=== PATIENT | male | born 1980 | race Caucasian/White ===

== ENCOUNTER 2016-12-28 09:47 | Emergency (ER) | payer OTHER ==
--- NOTE | 2016-12-28 11:07 | ED CLINICAL REPORT ---
Clinical Report - Physicians/Mid Levels [facility] [address] [place] [address] 12/28/2016 9:49 Patient: ALEJANDRO GARCIA Time Seen: 11:01 Dec 28 2016. Arrived- By private vehicle. Historian- patient. CPT: ER phys charges level 3 (#075301). HISTORY OF PRESENT ILLNESS Chief Complaint: LESION and (no insect bite.). (Pt scratched at lesion and skin opened up. Wound rubbibg on clothes and getting worse.). Is still present. It is described as painful. It has been located on the right thigh. A cause has been identified. Similar symptoms previously: None. Recent medical care: Not recently seen/assessed. REVIEW OF SYSTEMS No fever, chills, sore throat, enlarged lymph nodes or abdominal pain. No nausea, genital lesions or joint pain. All systems otherwise negative, except as recorded above. PAST HISTORY ADDITIONAL SURGERIES: Ear. Medications: [place] Oral. OLANZapine Oral. Ibuprofen Oral. Citalopram Hydrobromide Oral. Benzoprine. Allergies: No Known Drug Allergy. SOCIAL HISTORY Smoker- current status unknown (electronic cigarrette). Occasional alcohol use. History of drug use: marijuana. ADDITIONAL NOTES The nursing notes have been reviewed. PHYSICAL EXAM Vital Signs: 12/28/2016 09:57 BP: 138/75. HR: 76. RR: 18. O2 saturation: 97%. Temp: 98.4 F. Pain level now: 5/10. Appearance: Alert. No acute distress. Anxious. Eyes: Pupils equal, round and reactive to light. Conjunctivae and eyelids normal. ENT: Pharynx normal. CVS: Normal heart rate and rhythm. Heart sounds normal. No cardiac murmur. Respiratory: No respiratory distress. Breath sounds normal. Abdomen: Nontender. Skin: Normal skin color. Cellulitis to right thigh. Rash present on the right thigh (skin erosion 3 cm in diameter. NO fluctuance. No sign of penetrating injury.). There is induration and tenderness. Neuro: Oriented X 3. No motor deficit. No sensory deficit. PROGRESS AND PROCEDURES Course of Care: Dressing placed v over wound. Pt sounds like he scratched the skin off when he noticed a small bump in the area. Patient/family counseled. Disposition: Discharged. Condition: stable. CLINICAL IMPRESSION Right posterior thigh erosion with early cellulitis. INSTRUCTIONS Protect wound and keep wound area clean. Change dressing twice daily. Keep wounds dry. You may wash wounds briefly, then dry. Apply neosporin twice daily. Warnings: Further evaluation is necessary. GENERAL WARNINGS: Return or contact your physician immediately if your condition worsens or changes unexpectedly, if not improving as expected, or if other problems arise. Your Current Medications: CONTINUE TAKING THE FOLLOWING MEDICATIONS: Benzoprine*. Citalopram Hydrobromide Oral. Ibuprofen Oral. [place] Oral. OLANZapine Oral. Prescription Medications: Bactrim DS 800 mg / 160 mg: Take 1 tablet orally every 12 hours for 7 days. Dispense fourteen (14). No refills. Substitution is permissible. OTC Medications: Acetaminophen (available over the counter): take according to label instructions. Follow-up: Follow up with your doctor in five days. Call for an appointment. Understanding of the discharge instructions verbalized by patient. (Electronically signed by Pro Hinson MD 12/28/2016 14:28)
--- NOTE | 2016-12-28 11:07 | ED CLINICAL REPORT ---
Clinical Report - Physicians/Mid Levels [facility] [address] [place] [address] 12/28/2016 9:49 Patient: ALEJANDRO GARCIA Time Seen: 11:01 Dec 28 2016. Arrived- By private vehicle. Historian- patient. CPT: ER phys charges level 3 (#416346). HISTORY OF PRESENT ILLNESS Chief Complaint: LESION and (no insect bite.). (Pt scratched at lesion and skin opened up. Wound rubbibg on clothes and getting worse.). Is still present. It is described as painful. It has been located on the right thigh. A cause has been identified. Similar symptoms previously: None. Recent medical care: Not recently seen/assessed. REVIEW OF SYSTEMS No fever, chills, sore throat, enlarged lymph nodes or abdominal pain. No nausea, genital lesions or joint pain. All systems otherwise negative, except as recorded above. PAST HISTORY ADDITIONAL SURGERIES: Ear. Medications: [place] Oral. OLANZapine Oral. Ibuprofen Oral. Citalopram Hydrobromide Oral. Benzoprine. Allergies: No Known Drug Allergy. SOCIAL HISTORY Smoker- current status unknown (electronic cigarrette). Occasional alcohol use. History of drug use: marijuana. ADDITIONAL NOTES The nursing notes have been reviewed. PHYSICAL EXAM Vital Signs: 12/28/2016 09:57 BP: 138/75. HR: 76. RR: 18. O2 saturation: 97%. Temp: 98.4 F. Pain level now: 5/10. Appearance: Alert. No acute distress. Anxious. Eyes: Pupils equal, round and reactive to light. Conjunctivae and eyelids normal. ENT: Pharynx normal. CVS: Normal heart rate and rhythm. Heart sounds normal. No cardiac murmur. Respiratory: No respiratory distress. Breath sounds normal. Abdomen: Nontender. Skin: Normal skin color. Cellulitis to right thigh. Rash present on the right thigh (skin erosion 3 cm in diameter. NO fluctuance. No sign of penetrating injury.). There is induration and tenderness. Neuro: Oriented X 3. No motor deficit. No sensory deficit. PROGRESS AND PROCEDURES Course of Care: Dressing placed v over wound. Pt sounds like he scratched the skin off when he noticed a small bump in the area. Patient/family counseled. Disposition: Discharged. Condition: stable. CLINICAL IMPRESSION Right posterior thigh erosion with early cellulitis. INSTRUCTIONS Protect wound and keep wound area clean. Change dressing twice daily. Keep wounds dry. You may wash wounds briefly, then dry. Apply neosporin twice daily. Warnings: Further evaluation is necessary. GENERAL WARNINGS: Return or contact your physician immediately if your condition worsens or changes unexpectedly, if not improving as expected, or if other problems arise. Your Current Medications: CONTINUE TAKING THE FOLLOWING MEDICATIONS: Benzoprine*. Citalopram Hydrobromide Oral. Ibuprofen Oral. [place] Oral. OLANZapine Oral. Prescription Medications: Bactrim DS 800 mg / 160 mg: Take 1 tablet orally every 12 hours for 7 days. Dispense fourteen (14). No refills. Substitution is permissible. OTC Medications: Acetaminophen (available over the counter): take according to label instructions. Follow-up: Follow up with your doctor in five days. Call for an appointment. Understanding of the discharge instructions verbalized by patient. (Electronically signed by Pro Hinson MD 12/28/2016 14:28)
--- NOTE | 2016-12-28 11:07 | ED ORDER SUMMARY ---
..... Patient: ALEJANDRO GARCIA OrderSheet [facility] VisitID: [id number] [place] [address] 36y, M Registration Date/Time: 12/28/2016 ORDER SHEET Weight: 95.2 kg (stated) Allergies: No Known Drug Allergy GENERAL ORDERS: Dress Wounds (11:12/28/2016 Ly MUELLER) (Ack 11:07 IJurca ER Tech1) (11:29 GMarshall R.N.) MEDICATION ORDERS: Tdap IM 0.5 mL (NOW) (11:12/28/2016 Ly MUELLER) (Ack 11:10 Fidel R.N.) (11:21 Fidel R.N.) IV FLUIDS: ORDER SHEET NOTES: [Electronically signed by Reed Tobias R.N. (11:35 12/28/2016)] [Electronically signed by Pro Hinson MD (14:28 12/28/2016)] [Electronically locked/signed by Reed Tobias R.N. (11:35 12/28/2016)]
--- NOTE | 2016-12-28 11:07 | ED NURSING NOTES ---
Clinical Report - Nurses [place] [facility] [address] [place] [address] 12/28/2016 9:49 Patient: ALEJANDRO GARCIA TRIAGE Triage time 10:05. Acuity: LEVEL 3. Chief Complaint: Location of symptoms- (has a "burn"). Alert. No acute distress. CHRISTOPHER COMA SCORE: [place] Coma Scale: 15- eyes open spontaneously (4); best verbal response- oriented x 4 (5); best motor response- obeys commands (6). --10:12 Yuni Hirsch R.N. 09:57 12/28/16. BP: 138/75. HR: 76. RR: 18. O2 saturation: 97% on room air. Temp: 98.4 F (oral). Pain level now: 12/26. --10:12 Yuni Hirsch R.N. Weight: 95.2 kg stated. Height/Length: 72 inches Per Patient. BMI: 28.5. --10:11 Yuni Hirsch R.N. Medications Benzoprine. --10:07 Yuni Hirsch R.N. Citalopram Hydrobromide Oral. --10:07 Yuni Hirsch R.N. Ibuprofen Oral. --10:08 Yuni Hirsch R.N. OLANZapine Oral. --10:08 Yuni Hirsch R.N. [place] Oral. --10:08 Yuni Hirsch R.N. Medication/allergy information source: the patient. --10:12 Yuni Hirsch R.N. Allergies No Known Drug Allergy. --10:09 Yuni Hirsch R.N. History Arrived by private vehicle. Historian: patient. Unaccompanied. Primary physician (Mahendra). This occurred (about 3 days). SOCIAL HX: Smoker- current status unknown (states he vapes the equivalent of a pack a day). Occasional alcohol use. History of drug use: marijuana. FALL RISK ASSESSMENT: Fall risk assessment completed. No fall risk identified. FUNCTIONAL ASSESSMENT: Functional assessment: no impairments noted. LEARNING NEEDS ASSESSMENT: The learning needs assessment revealed no barriers. --10:12 Yuni Hirsch R.N. PROBLEMS: Chronic pain. Psychosis. Medication Refill. Depression. Previous Psychiatric Treatment. --10:10 Yuni Hirsch R.N. ADDITIONAL SURGERIES: Ear. --10:10 Yuni Hirsch R.N. Assessment GENERAL / NEURO / PSYCH: Alert. Oriented X 4. Appears in no acute distress. Patient appears calm and cooperative. RESPIRATORY: Respirations not labored. SKIN: Skin is warm and dry. --10:12 Yuni Hirsch R.N. Interventions ID band on patient. To treatment room. --10:12 Yuni Hirsch R.N. PHYSICAL ASSESSMENT 10:16 12/28/16. Patient gowned. GENERAL / NEURO / PSYCH: Oriented X 4. Alert. Appears in no acute distress. SKIN: ( on upper right thigh, area red, open, painful). Bruising, blisters and skin tears noted on right buttock. --10:16 Yuni Hirsch R.N. NURSING PROGRESS NOTES 10:16 12/28/16. Patient gowned. Call light placed in reach. Side rails up x 1. Bed placed in lowest position. Brakes of bed on. --10:16 Yuni Hirsch R.N. 11:21 12/28/2016 TDAP IM 0.5 mL given. (Lot#: [id number], expiration date: 05/26/2018, Cotton Bag Clipper: sanofi pasteur). Given in the right deltoid. Allergies verified and confirmed 5 rights. Vaccine information statement provided to the patient. --11:21 Yuni Hirsch R.N. ( bacitracin and 4X4 gauze sponge held intact with tape.). --11:29 Reed Tobias R.N. 11:33 12/28/16. BP: 135/75. HR: 75. RR: 20. O2 saturation: 98%. Temp: 98.1 F. Pain level now 09/28. --11:33 Reed Tobias R.N. DISPOSITION / DISCHARGE Condition at departure: improved. No learning barriers present. Discharge instructions provided and reviewed with the patient. Patient verbalized understanding. Written instructions provided in Luxem[place]ish. The patient was discharged by the physician. He was discharged home. --11:34 Reed Tobias R.N. 11:33 12/28/16. BP: 135/75. HR: 75. RR: 20. O2 saturation: 98%. Temp: 98.1 F. Pain level now 08/28. --11:34 Reed Tobias R.N. Locked/Released at 12/28/2016 11:35 by Reed Tobias R.N.
--- NOTE | 2016-12-28 11:07 | ED ORDER SUMMARY ---
..... Patient: ALEJANDRO GARCIA OrderSheet [facility] VisitID: [id number] [place] [address] 36y, M Registration Date/Time: 12/28/2016 ORDER SHEET Weight: 95.2 kg (stated) Allergies: No Known Drug Allergy GENERAL ORDERS: Dress Wounds (11:12/28/2016 Ly MUELLER) (Ack 11:07 IJurca ER Tech1) (11:29 GMarshall R.N.) MEDICATION ORDERS: Tdap IM 0.5 mL (NOW) (11:12/28/2016 Ly MUELLER) (Ack 11:10 Fidel R.N.) (11:21 Fidel R.N.) IV FLUIDS: ORDER SHEET NOTES: [Electronically signed by Reed Tobias R.N. (11:35 12/28/2016)] [Electronically signed by Pro Hinson MD (14:28 12/28/2016)] [Electronically locked/signed by Reed Tobias R.N. (11:35 12/28/2016)]
--- NOTE | 2016-12-28 11:07 | ED NURSING NOTES ---
Clinical Report - Nurses [place] [address] [place] [address] 12/28/2016 9:49 Patient: ALEJANDRO GARCIA TRIAGE Triage time 10:05. Acuity: LEVEL 3. Chief Complaint: Location of symptoms- (has a "burn"). Alert. No acute distress. CHRISTOPHER COMA SCORE: [place] Coma Scale: 15- eyes open spontaneously (4); best verbal response- oriented x 4 (5); best motor response- obeys commands (6). --10:12 Yuni Hirsch R.N. 09:57 12/28/16. BP: 138/75. HR: 76. RR: 18. O2 saturation: 97% on room air. Temp: 98.4 F (oral). Pain level now: 12/26. --10:12 Yuni Hirsch R.N. Weight: 95.2 kg stated. Height/Length: 72 inches Per Patient. BMI: 28.5. --10:11 Yuni Hirsch R.N. Medications Benzoprine. --10:07 Yuni Hirsch R.N. Citalopram Hydrobromide Oral. --10:07 Yuni Hirsch R.N. Ibuprofen Oral. --10:08 Yuni Hirsch R.N. OLANZapine Oral. --10:08 Yuni Hirsch R.N. [place] Oral. --10:08 Yuni Hirsch R.N. Medication/allergy information source: the patient. --10:12 Yuni Hirsch R.N. Allergies No Known Drug Allergy. --10:09 Yuni Hirsch R.N. History Arrived by private vehicle. Historian: patient. Unaccompanied. Primary physician (Mahendra). This occurred (about 3 days). SOCIAL HX: Smoker- current status unknown (states he vapes the equivalent of a pack a day). Occasional alcohol use. History of drug use: marijuana. FALL RISK ASSESSMENT: Fall risk assessment completed. No fall risk identified. FUNCTIONAL ASSESSMENT: Functional assessment: no impairments noted. LEARNING NEEDS ASSESSMENT: The learning needs assessment revealed no barriers. --10:12 Yuni Hirsch R.N. PROBLEMS: Chronic pain. Psychosis. Medication Refill. Depression. Previous Psychiatric Treatment. --10:10 Yuni Hirsch R.N. ADDITIONAL SURGERIES: Ear. --10:10 Yuni Hirsch R.N. Assessment GENERAL / NEURO / PSYCH: Alert. Oriented X 4. Appears in no acute distress. Patient appears calm and cooperative. RESPIRATORY: Respirations not labored. SKIN: Skin is warm and dry. --10:12 Yuni Hirsch R.N. Interventions ID band on patient. To treatment room. --10:12 Yuni Hirsch R.N. PHYSICAL ASSESSMENT 10:16 12/28/16. Patient gowned. GENERAL / NEURO / PSYCH: Oriented X 4. Alert. Appears in no acute distress. SKIN: ( on upper right thigh, area red, open, painful). Bruising, blisters and skin tears noted on right buttock. --10:16 Yuni Hirsch R.N. NURSING PROGRESS NOTES 10:16 12/28/16. Patient gowned. Call light placed in reach. Side rails up x 1. Bed placed in lowest position. Brakes of bed on. --10:16 Yuni Hirsch R.N. 11:21 12/28/2016 TDAP IM 0.5 mL given. (Lot#: [id number], expiration date: 05/26/2018, Diver Pumper: sanofi pasteur). Given in the right deltoid. Allergies verified and confirmed 5 rights. Vaccine information statement provided to the patient. --11:21 Yuni Hirsch R.N. ( bacitracin and 4X4 gauze sponge held intact with tape.). --11:29 Reed Tobias R.N. 11:33 12/28/16. BP: 135/75. HR: 75. RR: 20. O2 saturation: 98%. Temp: 98.1 F. Pain level now 09/28. --11:33 Reed Tobias R.N. DISPOSITION / DISCHARGE Condition at departure: improved. No learning barriers present. Discharge instructions provided and reviewed with the patient. Patient verbalized understanding. Written instructions provided in [place]. The patient was discharged by the physician. He was discharged home. --11:34 Reed Tobias R.N. 11:33 12/28/16. BP: 135/75. HR: 75. RR: 20. O2 saturation: 98%. Temp: 98.1 F. Pain level now 08/28. --11:34 Reed Tobias R.N. Locked/Released at 12/28/2016 11:35 by Reed Tobias R.N.
--- NOTE | 2016-12-28 14:28 | ED DISCHARGE INSTRUCTIONS ---
Patient: ALEJANDRO GARCIA General Instructions [facility] VisitID: [id number] [place] [address] 36y, M Registration Date/Time: 12/28/2016 Right posterior thigh erosion with early cellulitis. INSTRUCTIONS Protect wound and keep wound area clean. Change dressing twice daily. Keep wounds dry. You may wash wounds briefly, then dry. Apply neosporin twice daily. Warnings: Further evaluation is necessary. GENERAL WARNINGS: Return or contact your physician immediately if your condition worsens or changes unexpectedly, if not improving as expected, or if other problems arise. Your Current Medications: CONTINUE TAKING THE FOLLOWING MEDICATIONS: Benzoprine*. Citalopram Hydrobromide Oral. Ibuprofen Oral. [place] Oral. OLANZapine Oral. Prescription Medications: Bactrim DS 800 mg / 160 mg: Take 1 tablet orally every 12 hours for 7 days. Dispense fourteen (14). No refills. Substitution is permissible. OTC Medications: Acetaminophen (available over the counter): take according to label instructions. Follow-up: Follow up with your doctor in five days. Call for an appointment. Understanding of the discharge instructions verbalized by patient. ADDITIONAL INFORMATION Bandage Change If the bandage becomes wet or dirty, replace it. Otherwise, leave it in place for the first 24 hours. Then once a day: After removing the bandage, wash the area with soap and water. Use a wet cotton swab to loosen and remove any blood or crust that forms on the wound. After cleaning, apply a thin layer of antibiotic ointment or cream. Reapply the bandage. You may shower as usual after the first 24 hours. If the bandage is on an arm or leg, cover it with a plastic bag rubber banded at both ends before showering. No tub baths or swimming until the bandage is removed and the wound healed (at least 7 days). You have been given the following additional information: Dressing Change (Electronically signed by Pro Hinson MD 12/28/2016 14:28)
--- NOTE | 2016-12-28 14:28 | ED DISCHARGE INSTRUCTIONS ---
Patient: ALEJANDRO GARCIA General Instructions [facility] VisitID: [id number] [place] [address] 36y, M Registration Date/Time: 12/28/2016 Right posterior thigh erosion with early cellulitis. INSTRUCTIONS Protect wound and keep wound area clean. Change dressing twice daily. Keep wounds dry. You may wash wounds briefly, then dry. Apply neosporin twice daily. Warnings: Further evaluation is necessary. GENERAL WARNINGS: Return or contact your physician immediately if your condition worsens or changes unexpectedly, if not improving as expected, or if other problems arise. Your Current Medications: CONTINUE TAKING THE FOLLOWING MEDICATIONS: Benzoprine*. Citalopram Hydrobromide Oral. Ibuprofen Oral. [place] Oral. OLANZapine Oral. Prescription Medications: Bactrim DS 800 mg / 160 mg: Take 1 tablet orally every 12 hours for 7 days. Dispense fourteen (14). No refills. Substitution is permissible. OTC Medications: Acetaminophen (available over the counter): take according to label instructions. Follow-up: Follow up with your doctor in five days. Call for an appointment. Understanding of the discharge instructions verbalized by patient. ADDITIONAL INFORMATION Bandage Change If the bandage becomes wet or dirty, replace it. Otherwise, leave it in place for the first 24 hours. Then once a day: After removing the bandage, wash the area with soap and water. Use a wet cotton swab to loosen and remove any blood or crust that forms on the wound. After cleaning, apply a thin layer of antibiotic ointment or cream. Reapply the bandage. You may shower as usual after the first 24 hours. If the bandage is on an arm or leg, cover it with a plastic bag rubber banded at both ends before showering. No tub baths or swimming until the bandage is removed and the wound healed (at least 7 days). You have been given the following additional information: Dressing Change (Electronically signed by Pro Hinson MD 12/28/2016 14:28)
--- NOTE | 2016-12-28 14:28 | ED MED RECONCILIATION SUMMARY ---
Patient: ALEJANDRO GARCIA Medication Reconciliation Report [facility] VisitID: [id number] [place] [address] 36y, M Registration Date/Time: 12/28/2016 Weight: 95.2 kg Height/Length: 72 in. BMI: 28.5 ALLERGIES: No Known Drug Allergy The patient's Home Medications are listed below: CONTINUE TAKING THE FOLLOWING MEDICATIONS: Benzoprine Citalopram Hydrobromide Oral Ibuprofen Oral [place] Oral OLANZapine Oral The source(s) of the original Home Medication information: patient The following Medications were given to the patient in the Emergency Department: TDAP [IM] IM 0.5 mL, administered: 12/28/2016 11:21:00 AM The following Medications were prescribed to the patient: Acetaminophen (available over the counter): take according to label instructions. -- Pro Hinson MD Bactrim DS 800 mg / 160 mg: Take 1 tablet orally every 12 hours for 7 days. Dispense fourteen (14). No refills. Substitution is permissible. -- Pro Hinson MD
--- NOTE | 2016-12-28 14:28 | ED MAR SUMMARY ---
..... Medication Administration Record [facility] [address] [place] [address] Patient: ALEJANDRO GARCIA Visit ID: [id number] 36y, M Weight: 95.2 kg Height/Length: 72 in BMI: 28.5 ALLERGIES: No Known Drug Allergy Given 11:21 12/28/2016 Yuni Hirsch R.N. Medication Administered: TDAP [IM], Dose: 0.5 mL IM. Medication Ordered: Tdap IM 0.5 mL (NOW).
--- NOTE | 2016-12-28 14:28 | ED MAR SUMMARY ---
..... Medication Administration Record [facility] [address] [place] [address] Patient: ALEJANDRO GARCIA Visit ID: [id number] 36y, M Weight: 95.2 kg Height/Length: 72 in BMI: 28.5 ALLERGIES: No Known Drug Allergy Given 11:21 12/28/2016 Yuni Hirsch R.N. Medication Administered: TDAP [IM], Dose: 0.5 mL IM. Medication Ordered: Tdap IM 0.5 mL (NOW).
--- NOTE | 2016-12-28 14:28 | ED MED RECONCILIATION SUMMARY ---
Patient: ALEJANDRO GARCIA Medication Reconciliation Report [facility] VisitID: [id number] [place] [address] 36y, M Registration Date/Time: 12/28/2016 Weight: 95.2 kg Height/Length: 72 in. BMI: 28.5 ALLERGIES: No Known Drug Allergy The patient's Home Medications are listed below: CONTINUE TAKING THE FOLLOWING MEDICATIONS: Benzoprine Citalopram Hydrobromide Oral Ibuprofen Oral [place] Oral OLANZapine Oral The source(s) of the original Home Medication information: patient The following Medications were given to the patient in the Emergency Department: TDAP [IM] IM 0.5 mL, administered: 12/28/2016 11:21:00 AM The following Medications were prescribed to the patient: Acetaminophen (available over the counter): take according to label instructions. -- Pro Hinson MD Bactrim DS 800 mg / 160 mg: Take 1 tablet orally every 12 hours for 7 days. Dispense fourteen (14). No refills. Substitution is permissible. -- Pro Hinson MD
== END 2016-12-28 11:30 | disposition home or self-care (01) ==
LOC: ED SRH 09:47
DX: L03.115 Cellulitis of right lower limb (principal); L98.8 Other specified disorders of the skin and subcutaneous tissue; Z79.899 Other long term (current) drug therapy; Z79.1 Long term (current) use of non-steroidal anti-inflammatories (NSAID); Z23 Encounter for immunization